=== PATIENT | female | born 1965 ===

== ENCOUNTER 2018-02-11 02:37 | Emergency (ER) | payer OTHER ==
[~2018-02-11] VITALS: Ht 167.6 cm; Wt 93.0 kg
[2018-02-11] MEDS ORDERED: COZAAR50 MG (02:44)
[2018-02-11] MEDS ORDERED: PEPCID40 MG PO (07:20)
[2018-02-11] MEDS ORDERED: LEVSIN/SL0.125 MG SL (07:20)
[2018-02-11] MEDS ORDERED: ZOFRAN ODT4 MG PO (07:20)
== END 2018-02-11 14:43 | disposition home or self-care (01) ==
LOC: ER 02:37
DX: K52.9 Noninfective gastroenteritis and colitis, unspecified (principal)

== ENCOUNTER → 2018-02-13 | Emergency (ER) | payer OTHER ==
[~2018-02-13] VITALS: Ht 167.6 cm; Wt 90.7 kg
[~2018-02-13] MED LIST: COZAAR50 MG; LEVSIN/SL0.125 MG SL; PEPCID40 MG PO; ZOFRAN ODT4 MG PO
== END | disposition home or self-care (01) ==
LOC: ER 15:05
DX: K52.9 Noninfective gastroenteritis and colitis, unspecified (principal)